=== PATIENT | female | born 1985 | race Caucasian/White ===

== ENCOUNTER 2017-12-05 10:40 | Emergency (ER) | payer MEDICAID ==
[~2017-12-05] VITALS: Ht 180.3 cm; Wt 82.9 kg
[~2017-12-05 10:40] MED LIST: CLON0.5T23 PO; CYCL-1 PO; FAMO40TA73 PO; HYDR-569 PO; PARO40TA4 PO; ZOLP5TAB8 PO
[2017-12-05 11:11] LABS: BASOPHILS % (AUTO) 0.9 % (0-1); EOSINOPHILS # (AUTO) 0.1 X10'3 (0-0.9); EOSINOPHILS % (AUTO) 2.3 % (0-6); HEMATOCRIT 41.4 % (35.0-45.0); HEMOGLOBIN 14.3 g/dl (12.0-16.0); LYMPHOCYTES # (AUTO) 1.2 X10'3 (1.1-4.8); LYMPHOCYTES % (AUTO) 22.6 % (21-51); MEAN CORPUSCULAR HEMOGLOBIN 32.8 PG (27.0-31.0); MEAN CORPUSCULAR HGB CONC 34.6 % (33.0-36.5); MEAN CORPUSCULAR VOLUME 94.8 FL (78-98); MEAN PLATELET VOLUME 8.2 FL (7.4-10.4); MONOCYTES # (AUTO) 0.4 X10'3 (0-0.9); MONOCYTES % (AUTO) 7.1 % (2-12); NEUTROPHILS # (AUTO) 3.4 X10'3 (1.8-7.7); NEUTROPHILS % (AUTO) 67.1 % (42-75); PLATELET COUNT 263 X10'3 (140-440); RED BLOOD COUNT 4.37 X10'6 (4.20-5.60); RED CELL DISTRIBUTION WIDTH 13.2 % (11.5-14.5); WHITE BLOOD COUNT 5.1 X10'3 (4.5-11.0)
[2017-12-05 11:20] LABS: PROTHROMBIN TIME 9.9 SECONDS (9.0-12.0)
[2017-12-05 11:25] LABS: ALANINE AMINOTRANSFERASE 18 U/L (12-78); ALBUMIN 3.6 G/DL (3.4-5.0); ALBUMIN/GLOBULIN RATIO 1.1 (1.1-1.5); ALKALINE PHOSPHATASE 45 IU/L (46-116); ANION GAP 8 (8-16); ASPARTATE AMINO TRANSFERASE 14 U/L (10-37); BILIRUBIN,TOTAL 0.3 MG/DL (0.1-1.0); BLOOD UREA NITROGEN 15 MG/DL (7-18); BUN/CREATININE RATIO 13.8 (6.6-38.0); CALCIUM 9.2 MG/DL (8.5-10.1); CHLORIDE 107 MMOL/L (99-107); CREATININE 1.09 MG/DL (0.40-0.90); GLUCOSE 96 MG/DL (70-104); POTASSIUM 4.4 MMOL/L (3.5-5.1); SODIUM 142 MMOL/L (135-145); TOTAL CARBON DIOXIDE 26.8 MMOL/L (24-32); TOTAL PROTEIN 6.9 G/DL (6.4-8.2); eGFR 58 ML/MIN
[2017-12-05 11:44] LABS: COLOR,URINE Yellow (Yellow); GLUCOSE, URINE Negative (Neg); KETONES,URINE Negative (Neg); LEUKOCYTE ESTERASE ,URINE Negative (Neg); NITRITES, URINE Negative (Neg); OCCULT BLOOD,URINE Negative (Neg); PROTEIN,URINE Negative (Neg)
[2017-12-05 11:57] LABS: CLARITY,URINE Cloudy (Clear); UA COLLECTION TYPE CLN CATCH MIDSTREAM
[2017-12-05 12:07] LABS: MUCUS STRANDS MANY /LPF (Neg); SQUAMOUS EPITHELIAL CELL,UR MANY /LPF (FEW)
[2017-12-05 12:08] LABS: BACTERIA,URINE FEW /HPF (Neg); RBC,URINE 0-2 /HPF (0-2); TRANSITIONAL EPI CELLS,URINE FEW /HPF; WBC,URINE 0-4 /HPF (0-4)
[2017-12-05] MEDS ORDERED: ondansetron/PF 4mg/2ml inj IV ONE ×2 (13:00→18:25)
[2017-12-05] MEDS ORDERED: ketorolac trometh. 30mg/ml inj. IV ONE (13:00)
[2017-12-05] MEDS ORDERED: normal saline 1000ML IV soln IVB ONE (13:00)
[2017-12-05] MEDS ORDERED: morphine 8mg/ml inj. syringe IV PRN (13:00)
[2017-12-05] MEDS ORDERED: morphine 4 MG/ML inj SYRINge IV ONE ×2 (13:50→15:15)
[2017-12-05] MEDS: morphine 4 MG/ML inj SYRINge IV PRN ×3 (14:21→15:01)
[2017-12-05] MEDS ORDERED: fentaNYL/PF 50MCG/1 ML 2ML syringe IV ONE (15:30)
[2017-12-05] MEDS ORDERED: fentaNYL/PF 50MCG/1 ML 2ML syringe ONE ×2 (15:32→15:36)
[2017-12-05] MEDS ORDERED: meperidine/PF 25mg/ml syringe IV ONE ×2 (15:40→17:40)
[2017-12-05] MEDS ORDERED: meperidine/PF 50mg/ml syringe IV ONE (15:50)
[2017-12-05] MEDS ORDERED: meperidine/PF 50mg/ml syringe ONE (16:05)
[2017-12-05] MEDS ORDERED: LORazepam 2 mg/ml vial IV ONE (16:10)
[2017-12-05] MEDS ORDERED: normal saline 1000ml 1,000 ML IV ONE (16:45)
[2017-12-05 18:16] VITALS: BP 120/72
== END 2017-12-05 18:53 | disposition short-term general hospital (02) ==
LOC: ER 10:40
DX: R10.2 Pelvic and perineal pain (principal); F12.10 Cannabis abuse, uncomplicated; Z88.2 Allergy status to sulfonamides
CPT/HCPCS: 36415; 74176; 76856; 80053; 81001; 85025; 85610; 96361; 96374; 96375; 96376; 99285; A4310; J1885; J2060; J2175; J2270; J2405; J3010; J7030

== ENCOUNTER 2019-05-07 17:28 | Emergency (ER) | payer MEDICAID ==
[~2019-05-07] VITALS: Ht 180.3 cm; Wt 84.0 kg
[~2019-05-07 17:28] MED LIST changes: +HYDR-4383 PO; -HYDR-569 PO
[2019-05-07 17:48] VITALS: BP 118/80
--- NOTE | 2019-05-07 18:42 | NUR ---
DR MULLER AT BEDSIDE WITH PT
[2019-05-07] MEDS ORDERED: ketorolac trometh inj. 60 MG/2 ML VIAL IM ONE (18:50)
[2019-05-07] MEDS ORDERED: HYDR-3965 PO (18:52)
== END 2019-05-07 19:12 | disposition home or self-care (01) ==
LOC: ER 17:30
DX: M25.562 Pain in left knee (principal); F12.90 Cannabis use, unspecified, uncomplicated; Z90.710 Acquired absence of both cervix and uterus; Z90.89 Acquired absence of other organs; Z88.2 Allergy status to sulfonamides; Z79.899 Other long term (current) drug therapy; X50.1XXA Overexertion from prolonged static or awkward postures, initial encounter; Y93.64 Activity, baseball; Y92.89 Other specified places as the place of occurrence of the external cause; Y99.9 Unspecified external cause status
CPT/HCPCS: 73564; 96372; 99283; J1885

== ENCOUNTER 2019-07-04 07:57 | Emergency (ER) | payer MEDICAID ==
[~2019-07-04] VITALS: Ht 180.3 cm; Wt 78.7 kg
[2019-07-04] MEDS ORDERED: ketorolac tromethamine 15mg/ml inj. IM ONE (08:35)
[2019-07-04 09:31] LABS: BASOPHILS % (AUTO) 0.7 % (0-1); EOSINOPHILS # (AUTO) 0.1 X10'3 (0-0.9); EOSINOPHILS % (AUTO) 1.3 % (0-6); HEMATOCRIT 45.2 % (35.0-45.0); HEMOGLOBIN 15.4 g/dl (12.0-16.0); LYMPHOCYTES # (AUTO) 1.7 X10'3 (1.1-4.8); MEAN CORPUSCULAR HEMOGLOBIN 33.4 PG (27.0-31.0); MEAN CORPUSCULAR VOLUME 98.3 FL (78-98); MEAN PLATELET VOLUME 9.1 FL (7.4-10.4); MONOCYTES # (AUTO) 0.6 X10'3 (0-0.9); MONOCYTES % (AUTO) 9.9 % (2-12); NEUTROPHILS # (AUTO) 3.8 X10'3 (1.8-7.7); NEUTROPHILS % (AUTO) 61.1 % (42-75); PLATELET COUNT 265 X10'3 (140-440); RED CELL DISTRIBUTION WIDTH 12.6 % (11.5-14.5); WHITE BLOOD COUNT 6.2 X10'3 (4.5-11.0)
[2019-07-04 09:35] LABS: CLARITY,URINE CLOUDY (Clear); COLOR,URINE YELLOW (Yellow); GLUCOSE, URINE NEGATIVE (Neg); KETONES,URINE NEGATIVE (Neg); LEUKOCYTE ESTERASE ,URINE NEGATIVE (Neg); NITRITES, URINE POSITIVE (Neg); OCCULT BLOOD,URINE NEGATIVE (Neg); PROTEIN,URINE NEGATIVE (Neg)
[2019-07-04 09:37] LABS: URINE HCG NEGATIVE (NEG)
[2019-07-04] MEDS ORDERED: azithromycin 250mg tablet PO ONE (09:40)
[2019-07-04] MEDS ORDERED: CefTRIAXone 250MG IM Kit w/LIDOcaine IM ONE (09:40)
--- NOTE | 2019-07-04 09:42 | NUR ---
ASSISSTED WITH PELVIC, BHAVIK/WET MOUNT SENT TO LAB.
[2019-07-04 09:44] LABS: UA COLLECTION TYPE CLN CATCH MIDSTREAM
[2019-07-04] MEDS ORDERED: CEPH-572 PO (09:49)
[2019-07-04 09:52] LABS: BACTERIA,URINE 3+ /HPF (Neg); MUCUS STRANDS MODERATE /LPF (Neg); RBC,URINE 0-2 /HPF (0-2); SQUAMOUS EPITHELIAL CELL,UR MODERATE /LPF (FEW)
[2019-07-04 10:20] VITALS: BP 129/64
[2019-07-04 10:28] LABS: ALANINE AMINOTRANSFERASE 12 U/L (12-78); ALBUMIN 3.9 G/DL (3.4-5.0); ALBUMIN/GLOBULIN RATIO 1.1 (1.1-1.5); ALKALINE PHOSPHATASE 64 IU/L (46-116); ANION GAP 8 (8-16); ASPARTATE AMINO TRANSFERASE 9 U/L (10-37); BILIRUBIN,TOTAL 0.7 MG/DL (0.1-1.0); BLOOD UREA NITROGEN 18 MG/DL (7-18); CHLORIDE 108 MMOL/L (99-107); GLUCOSE 87 MG/DL (70-104); POTASSIUM 3.9 MMOL/L (3.5-5.1); SODIUM 142 MMOL/L (135-145); TOTAL CARBON DIOXIDE 25.8 MMOL/L (24-32); TOTAL PROTEIN 7.5 G/DL (6.4-8.2); eGFR 63 ML/MIN
== END 2019-07-04 10:15 | disposition home or self-care (01) ==
LOC: ER 07:58
DX: N89.8 Other specified noninflammatory disorders of vagina (principal); N39.0 Urinary tract infection, site not specified; R11.2 Nausea with vomiting, unspecified; R19.7 Diarrhea, unspecified; F41.9 Anxiety disorder, unspecified; F32.9 Major depressive disorder, single episode, unspecified; F12.90 Cannabis use, unspecified, uncomplicated; F10.99 Alcohol use, unspecified with unspecified alcohol-induced disorder; Z88.2 Allergy status to sulfonamides; Z90.710 Acquired absence of both cervix and uterus; Z90.721 Acquired absence of ovaries, unilateral; Z79.899 Other long term (current) drug therapy; Y90.9 Presence of alcohol in blood, level not specified
CPT/HCPCS: 36415; 80053; 81001; 81025; 85025; 87077; 87088; 87186; 87210; 87491; 87591; 96372; 99283; J0696; J1885; Q0112

== ENCOUNTER 2019-09-29 09:39 | Outpatient (CLI) | payer MEDICAID ==
[2019-09-29] MEDS ORDERED: BARIUM SULFATE 340 ML SUSP.RECON***PROCEDURE AREA ONLY**DONT ENTER PO ONE (14:00)
== END 2019-09-29 23:59 | disposition home or self-care (01) ==
LOC: RAD 09:39
PROVIDERS: ATTEND Otolaryngology
DX: R13.13 Dysphagia, pharyngeal phase (principal); R56.9 Unspecified convulsions; Z88.2 Allergy status to sulfonamides
CPT/HCPCS: 74220